=== PATIENT | female | born 1965 | race Caucasian/White ===

== ENCOUNTER 2019-04-08 19:29 | Emergency (ER) | payer OTHER ==
[~2019-04-08] VITALS: Ht 165.1 cm; Wt 72.3 kg
[~2019-04-08 19:29] MED LIST: MINO80TA PO
[2019-04-08] MEDS ORDERED: MAALOX/HYOSCYAMINE/LIDOCAINE 45 ML BTL PO ONE (20:00)
--- NOTE | 2019-04-08 20:06 | NUR ---
PT. TO ROOM FROM LOBBY AT THIS TIME.
[2019-04-08 20:11] LABS: BASOPHILS # (AUTO) 0.03 x10^3/uL (0-0.1); BASOPHILS % (AUTO) 0 % (0-1); EOSINOPHILS # (AUTO) 0.08 x10^3/uL (0-0.4); EOSINOPHILS % (AUTO) 1 % (1-7); LYMPHOCYTES # (AUTO) 1.88 x10^3/uL (1-3.4); LYMPHOCYTES % (AUTO) 28 % (22-44); MD NO; MEAN CORPUSCULAR HEMOGLOBIN 30.9 pg (27.0-34.8); MEAN CORPUSCULAR VOLUME 93.4 fL (80-100); MEAN PLATELET VOLUME 7.7 fL (7.4-10.4); MONOCYTES # (AUTO) 0.33 x10^3/uL (0.2-0.8); MONOCYTES % (AUTO) 5 % (2-9); NEUTROPHILS # (AUTO) 4.49 x10^3/uL (1.8-6.8); NEUTROPHILS % (AUTO) 66 % (42-75); PLATELET COUNT 341 x10^3/uL (130-400); RED BLOOD COUNT 4.54 x10^6/uL (3.82-5.3); RED CELL DISTRIBUTION WIDTH 12.7 % (9.6-15.2)
[2019-04-08] MEDS ORDERED: MAALOX/HYOSCYAMINE/LIDOCAINE 45 ML BTL ONE (20:15)
[2019-04-08 20:24] LABS: ALBUMIN 4.4 g/dL (3.4-5.0); ANION GAP 10 mmol/L (5-15); CALCIUM 9.6 mg/dL (8.5-10.1); CHLORIDE 99 mmol/L (98-107)
--- NOTE | 2019-04-08 20:27 | NUR ---
PT C/O EPIGASTRIC CP STARTING TODAY ABOUT 1700. PT TAKING EMPTY BOXES TO CAR WHEN PAIN STARTED. CONNECTED TO MONITORING. CALL LIGHT IN REACH.
[2019-04-08 20:30] LABS: ALANINE AMINOTRANSFERASE 26 U/L (12-78); ALKALINE PHOSPHATASE 102 U/L (45-117); BILIRUBIN,TOTAL 0.6 mg/dL (0.2-1.0); CREATININE 0.79 mg/dL (0.55-1.02); TROPONIN I < 0.015 ng/mL (0.000-0.045)
[2019-04-08] MEDS ORDERED: ASPIRIN 81 MG TABLET CHEW ONE (20:30)
[2019-04-08] MEDS ORDERED: ASPIRIN 81 MG TABLET CHEW PO ONE (20:30)
[2019-04-08] MEDS ORDERED: NITROGLYCERIN SINGLE TAB 0.4 MG SL PRN (20:30)
--- NOTE | 2019-04-08 20:33 | NUR ---
MEDS ADMIN PER JUN. PT DENIES CP AT THIS TIME.
--- NOTE | 2019-04-08 21:34 | NUR ---
ALL RESULTS ARE BACK AT THIS TIME. CHART UP FOR RECHECK.
[2019-04-08 21:36] VITALS: BP 136/91
--- NOTE | 2019-04-08 21:36 | NUR ---
PT RESTING COMFORTABLY ON GURNEY. GERMAINE. SPOUSE AT BEDSIDE.
== END 2019-04-08 20:38 | disposition home or self-care (01) ==
LOC: ED 20:32
DX: R07.89 Other chest pain (principal); R00.2 Palpitations; Z72.89 Other problems related to lifestyle
CPT/HCPCS: 36415; 71046; 80053; 83690; 83735; 84484; 85025; 85379; 93005; 99284